=== PATIENT | male | born 1970 ===

== ENCOUNTER 2018-05-28 19:41 | Emergency (ER) | payer OTHER ==
[2018-05-28 19:58] VITALS: BP 111/70; PULSE 75; RESP 16; TEMP 98.3; O2SAT 97
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
== END 2018-05-28 22:34 | disposition home or self-care (01) ==
LOC: H.ER 19:41
DX: R51 Headache (principal); M54.5 Low back pain; S49.91XA Unspecified injury of right shoulder and upper arm, initial encounter; V43.52XA Car driver injured in collision with other type car in traffic accident, initial encounter; Y99.0 Civilian activity done for income or pay